=== PATIENT | male | born 1950 | race Caucasian/White ===

== ENCOUNTER 2022-03-13 13:47 | Outpatient (CLI) | payer MEDICARE, SELFPAY ==
[2022-03-13 14:04] LABS: Hemoglobin 14.1 g/dL (14.0-18.0); Mean Corpuscular HGB Conc 33.6 g/dl (32-36); Mean Corpuscular Volume 95.5 fl (80-100); Mean Platelet Volume 9.8 fl (7.4-10.4); Platelet Count Result 529 k/mm3 (150-375); Red Cell Distribution Width 17.6 % (11.5-14.5); White Blood Count 5.9 K/mm3 (4.5-10.0)
[2022-03-13 14:09] LABS: Sodium 141 mmol/L (137-145)
[2022-03-13 17:11] LABS: Anion Gap 14 mmol/L (8-16); Blood Urea Nitrogen 19 mg/dL (9-20); Calcium 9.4 mg/dL (8.4-10.2); Carbon Dioxide 20 mmol/L (22-30); Chloride 107 mmol/L (98-107); Estimated Glomerular Filt Rate > 60; Glucose 139 mg/dL (65-110); Potassium 3.9 mmol/L (3.4-5.0)
== END 2022-03-13 13:48 | disposition home or self-care (01) ==
LOC: ANHLAB 13:50
PROVIDERS: PCP Family Medicine; Visit Provider Internal Medicine Hematology & Oncology
DX: D47.3 Essential (hemorrhagic) thrombocythemia (principal)
CPT/HCPCS: 36415; 80048; 85027

== ENCOUNTER 2022-03-22 12:18 | Outpatient (CLI) | payer MEDICARE, SELFPAY ==
--- NOTE | 2022-03-22 12:31 | ECG_ITS ---
Measurements Intervals [place] Rate: 68 P: 29 NH: 153 QRS: -11 QRSD: 98 T: 9 QT: 387 QTc: 412 Interpretive Statements SINUS RHYTHM NORMAL ECG NO PREVIOUS ECG AVAILABLE FOR COMPARISON Electronically Signed On 03-22-2022 14:19:23 CDT by Nehemias Narayan M.D.
== END 2022-03-22 12:19 | disposition home or self-care (01) ==
PROVIDERS: PCP Family Medicine; Visit Provider Urology
DX: Z01.818 Encounter for other preprocedural examination (principal); I10 Essential (primary) hypertension; N43.3 Hydrocele, unspecified
CPT/HCPCS: 87086; 93005

== ENCOUNTER 2022-04-03 02:01 | Day surgery (SDC) | payer MEDICARE, SELFPAY ==
[2022-03-22 10:50] VITALS: BMI 31.4
--- NOTE | 2022-03-22 11:12 | PC.NURSE ---
Report to the Outpatient Waiting Room, entrance under the green pavilion located off [facility], at time _10:00AM on date __04/03/22 . OR Time: ___12:00PM . - You and your visitor will be asked a series of questions to screen for COVID 19 for your protection. - Only one visitor is allowed at this time. - The patient visitor is requested to leave or wait in car when not with patient. - A mask is required within the hospital. Patients may have clear liquids (water, carbonated beverages, clear teas, apple juice) until 3 hours prior to surgery with a maximum of 20 ounces. - No food from midnight until time of surgery - Infants may have breast milk until 4 hours before surgery, formula 6 hours prior to surgery. - Children will be allowed to drink immediately following surgery. If applicable, please bring a bottle or sippy cup to assist with drinking. Juice, water, soda, and popsicles are readily available. For infants on formula, please bring formula the day of surgery. Pacifiers are allowed. Take the following medications with a SIP of water the morning of surgery: ____METOPROLOL Medications to discontinue per physician ___PT & CHECKING WITH DR LONG REGARDING HOLDING OF ASPIRIN Date to take last dose Please no make-up, nail persian, hairspray, perfume, deodorant, or body powder the day of surgery. No jewelry (including any body piercings) or valuables the day of surgery, leave them at home. Please take a shower or bath the night before, or the morning of, surgery with an antibacterial soap. Wear comfortable, loose fitting clothing. Children are encouraged to wear pajamas. - Jewelry must be removed prior to entering the operating room. Rings and piercings that are not removed may be cut off. - The hospital will not accept responsibility for valuables. - Please leave all valuables, including medications, at home the day of surgery. If you are going home after surgery, a licensed [employer] company driver must drive you home. - NO public transportation without another adult. - We recommend that an adult stay with you for 24 hours following discharge. - We also recommend that you do not drive, make important decision, drink alcoholic beverages, or take any drugs that were not prescribed by your health care provider for at least 24 hours after your discharge time. For Pediatric surgeries, we recommend two adults accompany the child home (only one inside the building at this time). Follow any additional instructions given to you from your surgeon. If you or anyone in your household have experienced Covid symptoms in the past week, please notify your surgeon or the nurse liaison at the phone number below for possible testing. Telephone instructions given to ___PATIENT and asked if any additional questions and then verbalized understanding. Patient advised to call surgeon office or pre surgery nurse liaison [phone] if any additional questions.
[2022-04-03] VITALS (7 sets, daily range): BP systolic 133–166; BP diastolic 64–84; PULSE 49–65; RESP 14–18; TEMP 36.2–36.5; O2SAT 96–100; BMI 30.4
[2022-04-03 10:49] LABS: Glucose Point of Care 113 mg/dl (65-105)
[2022-04-03] MEDS: ACETAMINOPHEN 500 MG TABLET 1000 MG PO (11:00)
--- NOTE | 2022-04-03 11:29 | WPDANESEPPF ---
Anes - Initial Pre Proc Eval Procedure: Operation Date: 04/03/22 12:00 Proposed Procedures p Left Hydrocelectomy with Possible Orchiopexy - Eh Lyon MD Date/Time: 04/03/22 11:29 Surgeon: Eh Lyon MD Pre Op Diagnosis: left hydrocele Patient Data Age: 71 Gender: M Height: 1.7 m Weight: 88.2 kg Last Vital Signs Temp 36.5 C 04/03/22 11:15 Pulse 54 L 04/03/22 11:15 Resp 14 04/03/22 11:15 BP 166/82 H 04/03/22 11:15 Pulse Ox 100 04/03/22 11:15 O2 Del Method Room Air 04/03/22 11:15 Allergies Allergy/AdvReac Type Severity Reaction Status Date / Time lovastatin AdvReac Unknown MUSCLE Verified 04/03/22 11:35 Weakness Home Medications Medication Instructions Recorded Confirmed Type metoprolol tartrate 50 mg tablet 50 mg PO Q12H #180 tabs 10/03/21 03/22/22 Rx hydroxyurea 500 mg capsule 500 mg PO HS 02/21/22 03/22/22 History allopurinol 300 mg tablet 300 tablet PO QAM 03/22/22 03/22/22 History amlodipine 5 mg tablet 5 mg PO HS 03/22/22 03/22/22 History aspirin 81 mg tablet,delayed 81 mg PO DAILY 03/22/22 03/22/22 History release famotidine 20 mg tablet (Pepcid AC) 20 mg PO DAILY PRN Indigestion 03/22/22 03/22/22 History finasteride 5 mg tablet 5 mg PO HS 03/22/22 03/22/22 History lisinopril 20 mg tablet 20 mg PO QAM 03/22/22 03/22/22 History metformin 500 mg tablet 500 mg PO HS 03/22/22 03/22/22 History multivitamin 1 tablet PO DAILY 03/22/22 03/22/22 History sildenafil 100 mg tablet (Viagra) 100 mg PO DAILY PRN sexual activity 03/22/22 03/22/22 History tamsulosin 0.4 mg capsule 0.4 mg PO QAM 03/22/22 03/22/22 History Laboratory Tests 04/03/22 10:46 POC Capillary Glucose 113 mg/dl H mg/dl (65-105) Patient hx anesthesia problems: none Family hx anesthesia problems: none Results Review: All pre-operative results and documents have been reviewed as part of the pre-operative evaluation. [facility] Past Medical History Medical History (Updated 04/03/22 @ 11:30 by Fermin Simons DO) Essential (primary) hypertension Essential thrombocythemia Mixed hyperlipidemia Obesity (BMI 30.0-34.9) Type 2 diabetes mellitus with complication Surgical History Surgical History (Updated 12/12/21 @ 10:14 by Nehemias Long MD) History of hernia repair History of total right knee replacement (~12/29/15) Family History Family History Other Family history of hypercholesterolemia Social History Social History (Updated 12/12/21 @ 09:54 by ALEXEI Espinal) Smoking packs per day: 1 Smoking cigarettes per day: 20.0 Years smoked: 40 Smoking pack-years: 40.00 Smoking status: Former smoker Tobacco type: cigarettes Smoking end date: 04/12/11 Alcohol intake: current Drinks per week: 6 Alcohol use details: 6-12 per week Substance use: never Substance use type: does not use Living arrangements: with family Additional living arrangements comments: Gender identity (if verbalized by the patient): Male Spiritual care concerns: No Anes - Eval Final PreProcedure Day of Procedure 04/03/22 11:29 Patient weight: obese Heart: regular rate and rhythm Lungs: clear to auscultation Airway: Mallampati scale class II Neurological: alert and oriented Last oral intake: >/= 8 hours ASA classification: III Emergent: no Anesthetic plan: proceed Anesthesia type and monitoring: general LMA and standard monitoring Results Review: All pre-operative results and documents have been reviewed as part of the pre-operative evaluation. Informed Consent: The patient's anesthetic plan and its attendant risks and benefits were discussed with the patient/family/POA. Questions were solicited and answers provided to the satisfaction of the patient/family/POA.
[2022-04-03] MEDS: LACTATED RINGERS 1,000 ML 30 ML IV CONT ×2 (11:36→13:21)
--- NOTE | 2022-04-03 12:00 | WPDHPUPDATE1 ---
History and Physical Update Update Date/Time: 04/03/22 12:00 History and Physical has been reviewed, including an updated exam of the patient. There are NO changes in the patient's condition. Risks, benefits, and alternatives have been discussed and questions answered. Patient agrees to proceed with procedure.
[2022-04-03] MEDS: ceFAZolin 2 GM/D5W 50 ML 2 GM/50 ML BAG IVPB (12:14)
[2022-04-03] MEDS: NEOMYCIN/POLYMYXIN/BACITRACIN OINTMENT 15 GM TUBE 1 APPLIC TOPICAL (13:10)
--- NOTE | 2022-04-03 13:15 | W.PM.PROC2 ---
Procedure Note - Detailed Date of Procedure 04/03/22 Pre-op Diagnosis left hydrocele Post-op Diagnosis Same Procedure Performed left hydrocelectomy, left orchiopexy Surgeon Eh Lyon MD Description of Procedure Informed consent was obtained. Patient taken to room. He was given preoperative IV antibiotics. Was induced with anesthesia. 0.5% Marcaine was injected in the midline scrotal raphe. We made a 5cm incision. We dissected down the left hemiscrotum right large hydrocele was identified. The hydrocele sac was from surrounding structures. The sac was opened and return approximately 300mL straw colored fluid. We inspected the testicle and spermatic cord which were normal in appearance. We excised the edges of the hydrocele sac taking great care not to injure the spermatic cord. Edges were oversewn with 2 0 Vicryl suture. We irrigated copiously, there was good hemostasis. At this point the testicle did appear rather mobile, we therefore elected to perform an orchiopexy using 3-0 Ethibond suture laterally, medially, inferiorly to the dartos layer and through the tunica albuginea of the testicle. The testicle sat nicely in the inferior aspect of the hemiscrotum. We then again irrigated. We closed the dartos layer with 2-0 Vicryl suture. Deep dermal layer with 3-0 Vicryl suture and skin with a 3-0 chromic horizontal mattress closure. Dressing was placed scrotal supporter applied. Patient was awakened to recovery room in stable condition Estimated Blood Loss 10 Complications No immediate complications Condition Stable Disposition PACU
[2022-04-03 13:27] LABS: Glucose Point of Care 107 mg/dl (65-105)
[2022-04-03] MEDS: oxyCODONE HCL (*CRX) 5 MG TAB IR PO (14:48)
== END 2022-04-03 15:28 | disposition home or self-care (01) ==
PROVIDERS: PCP Family Medicine; Visit Provider Urology
PROC: (CPT 55040; principal; 2022-04-03 12:00)
DX: N43.3 Hydrocele, unspecified (principal); I10 Essential (primary) hypertension; E78.2 Mixed hyperlipidemia; E11.9 Type 2 diabetes mellitus without complications; Z79.82 Long term (current) use of aspirin; Z79.84 Long term (current) use of oral hypoglycemic drugs; E66.9 Obesity, unspecified; Z68.30 Body mass index [BMI] 30.0-30.9, adult; Z87.891 Personal history of nicotine dependence
CPT/HCPCS: 55040; 54640; 82948; 88302; A9270; J0690; J1100; J2250; J2405; J2704; J2710; J3010; J7120

== ENCOUNTER 2022-04-11 12:35 | Outpatient (CLI) | payer MEDICARE, SELFPAY ==
[2022-04-11 12:55] LABS: Basophils Absolute Auto 0.1 K/mm3 (0.0-0.1); Basophils Percent Auto 1.1 % (0.2-1.2); Eosinophils Absolute Auto 0.2 K/mm3 (0-0.3); Eosinophils Percent Auto 2.7 % (0-4.4); Hematocrit 40.3 % (42.0-52.0); Hemoglobin 13.5 g/dL (14.0-18.0); Immature Granulocyte Absolute 0.05 K/mm3 (0.00-0.031); Immature Granulocyte Percent A 0.6 % (0-0.5); Lymphocytes Absolute Auto 2.11 K/mm3 (0.9-3.2); Lymphocytes Percent Auto 24.8 % (18.3-44.2); Mean Corpuscular HGB Conc 33.5 g/dl (32-36); Mean Corpuscular Hemoglobin 33.7 pg (26-34); Mean Corpuscular Volume 100.5 fl (80-100); Mean Platelet Volume 10.1 fl (7.4-10.4); Monocytes Absolute Auto 0.8 K/mm3 (0.1-0.6); Monocytes Percent Auto 9.6 % (2.6-8.5); Neutrophils Absolute Auto 5.2 K/mm3 (1.3-6.7); Neutrophils Percent Auto 61.2 % (45.5-73.1); Platelet Count Result 435 k/mm3 (150-375); Red Blood Count 4.01 M/mm3 (4.6-6.20); Red Cell Distribution Width 19.1 % (11.5-14.5); White Blood Count 8.5 K/mm3 (4.5-10.0)
[2022-04-11 12:59] LABS: Blood Urea Nitrogen 21 mg/dL (8-26); Carbon Dioxide 27 mmol/L (22-30); Chloride 106 mmol/L (98-109); Estimated Glomerular Filt Rate 38; Glucose 100 mg/dL (70-105); Ionized Calcium (POC) 1.22 mmol/L (1.11-1.31); Potassium 4.3 mmol/L (3.5-4.9); Sodium 140 mmol/L (138-146)
== END 2022-04-11 12:36 | disposition home or self-care (01) ==
LOC: ANHLAB 12:37
PROVIDERS: PCP Family Medicine; Visit Provider Internal Medicine Hematology & Oncology
DX: D47.3 Essential (hemorrhagic) thrombocythemia (principal)
CPT/HCPCS: 36415; 80047; 85025

== ENCOUNTER 2022-05-21 13:54 | Outpatient (CLI) | payer MEDICARE, SELFPAY ==
[2022-05-21 14:11] LABS: Basophils Absolute Auto 0.1 K/mm3 (0.0-0.1); Eosinophils Absolute Auto 0.2 K/mm3 (0-0.3); Eosinophils Percent Auto 3.1 % (0-4.4); Hematocrit 39.4 % (42.0-52.0); Hemoglobin 13.1 g/dL (14.0-18.0); Immature Granulocyte Absolute 0.03 K/mm3 (0.00-0.031); Immature Granulocyte Percent A 0.4 % (0-0.5); Lymphocytes Absolute Auto 2.02 K/mm3 (0.9-3.2); Lymphocytes Percent Auto 28.2 % (18.3-44.2); Mean Corpuscular HGB Conc 33.2 g/dl (32-36); Mean Corpuscular Hemoglobin 34.6 pg (26-34); Monocytes Absolute Auto 0.7 K/mm3 (0.1-0.6); Monocytes Percent Auto 9.5 % (2.6-8.5); Neutrophils Absolute Auto 4.1 K/mm3 (1.3-6.7); Neutrophils Percent Auto 57.8 % (45.5-73.1); Platelet Count Result 425 k/mm3 (150-375); Red Blood Count 3.79 M/mm3 (4.6-6.20); Red Cell Distribution Width 17.7 % (11.5-14.5); White Blood Count 7.2 K/mm3 (4.5-10.0)
== END 2022-05-21 13:55 | disposition home or self-care (01) ==
PROVIDERS: PCP Family Medicine; Visit Provider Internal Medicine Hematology & Oncology
DX: D47.3 Essential (hemorrhagic) thrombocythemia (principal)
CPT/HCPCS: 36415; 85025

== ENCOUNTER 2022-08-19 14:12 | Outpatient (CLI) | payer MEDICARE, SELFPAY ==
[2022-08-19 14:22] LABS: Hematocrit 40.1 % (42.0-52.0); Hemoglobin 13.6 g/dL (14.0-18.0); Mean Corpuscular HGB Conc 33.9 g/dl (32-36); Mean Corpuscular Hemoglobin 36.1 pg (26-34); Mean Corpuscular Volume 106.4 fl (80-100); Mean Platelet Volume 10.1 fl (7.4-10.4); Platelet Count Result 345 k/mm3 (150-375); Red Blood Count 3.77 M/mm3 (4.6-6.20); Red Cell Distribution Width 14.2 % (11.5-14.5); White Blood Count 7.5 K/mm3 (4.5-10.0)
[2022-08-19 14:29] LABS: Blood Urea Nitrogen 19 mg/dL (8-26); Carbon Dioxide 26 mmol/L (22-30); Chloride 104 mmol/L (98-109); Estimated Glomerular Filt Rate 35; Glucose 154 mg/dL (70-105); Ionized Calcium (POC) 1.23 mmol/L (1.11-1.31); Potassium 4.1 mmol/L (3.5-4.9); Sodium 140 mmol/L (138-146)
== END 2022-08-19 14:13 | disposition home or self-care (01) ==
LOC: ANHLAB 14:13
PROVIDERS: PCP Family Medicine; Visit Provider Internal Medicine Hematology & Oncology
DX: D47.3 Essential (hemorrhagic) thrombocythemia (principal)
CPT/HCPCS: 36415; 80047; 85027

== ENCOUNTER 2022-11-18 13:57 | Outpatient (CLI) | payer MEDICARE, SELFPAY ==
[2022-11-18 14:07] LABS: Basophils Absolute Auto 0.1 K/mm3 (0.0-0.1); Eosinophils Absolute Auto 0.4 K/mm3 (0-0.3); Eosinophils Percent Auto 4.8 % (0-4.4); Hematocrit 39.1 % (42.0-52.0); Hemoglobin 13.3 g/dL (14.0-18.0); Immature Granulocyte Absolute 0.04 K/mm3 (0.00-0.031); Immature Granulocyte Percent A 0.5 % (0-0.5); Lymphocytes Absolute Auto 2.94 K/mm3 (0.9-3.2); Lymphocytes Percent Auto 36.5 % (18.3-44.2); Mean Corpuscular Hemoglobin 36.6 pg (26-34); Mean Corpuscular Volume 107.7 fl (80-100); Mean Platelet Volume 9.8 fl (7.4-10.4); Monocytes Absolute Auto 0.9 K/mm3 (0.1-0.6); Monocytes Percent Auto 11.3 % (2.6-8.5); Neutrophils Absolute Auto 3.7 K/mm3 (1.3-6.7); Neutrophils Percent Auto 45.9 % (45.5-73.1); Platelet Count Result 355 k/mm3 (150-375); Red Blood Count 3.63 M/mm3 (4.6-6.20); Red Cell Distribution Width 14.6 % (11.5-14.5); White Blood Count 8.1 K/mm3 (4.5-10.0)
[2022-11-18 14:13] LABS: Blood Urea Nitrogen 21 mg/dL (8-26); Carbon Dioxide 31 mmol/L (22-30); Chloride 104 mmol/L (98-109); Estimated Glomerular Filt Rate 31; Glucose 91 mg/dL (70-105); Ionized Calcium (POC) 1.25 mmol/L (1.11-1.31); Potassium 3.8 mmol/L (3.5-4.9); Sodium 142 mmol/L (138-146)
== END 2022-11-18 13:58 | disposition home or self-care (01) ==
LOC: ANHLAB 13:58
PROVIDERS: PCP Family Medicine; Visit Provider Internal Medicine Hematology & Oncology
DX: D47.3 Essential (hemorrhagic) thrombocythemia (principal)
CPT/HCPCS: 36415; 80047; 85025

== ENCOUNTER 2023-02-11 11:06 | Outpatient (CLI) | payer MEDICARE, SELFPAY ==
[2023-02-11 11:19] LABS: Basophils Absolute Auto 0.1 K/mm3 (0.0-0.1); Eosinophils Absolute Auto 0.3 K/mm3 (0-0.3); Eosinophils Percent Auto 3.8 % (0-4.4); Hematocrit 39.1 % (42.0-52.0); Hemoglobin 13.5 g/dL (14.0-18.0); Immature Granulocyte Absolute 0.04 K/mm3 (0.00-0.031); Immature Granulocyte Percent A 0.6 % (0-0.5); Lymphocytes Absolute Auto 2.05 K/mm3 (0.9-3.2); Lymphocytes Percent Auto 29.2 % (18.3-44.2); Mean Corpuscular HGB Conc 34.5 g/dl (32-36); Mean Corpuscular Volume 104.3 fl (80-100); Monocytes Absolute Auto 0.5 K/mm3 (0.1-0.6); Monocytes Percent Auto 7.7 % (2.6-8.5); Neutrophils Absolute Auto 4.1 K/mm3 (1.3-6.7); Neutrophils Percent Auto 57.7 % (45.5-73.1); Platelet Count Result 374 k/mm3 (150-375); Red Blood Count 3.75 M/mm3 (4.6-6.20); Red Cell Distribution Width 13.9 % (11.5-14.5)
[2023-02-11 11:23] LABS: Blood Urea Nitrogen 18 mg/dL (8-26); Carbon Dioxide 24 mmol/L (22-30); Chloride 103 mmol/L (98-109); Estimated Glomerular Filt Rate 26; Glucose 115 mg/dL (70-105); Potassium 4.1 mmol/L (3.5-4.9); Sodium 139 mmol/L (138-146)
== END 2023-02-11 11:07 | disposition home or self-care (01) ==
LOC: ANHLAB 11:08
PROVIDERS: PCP Family Medicine; Visit Provider Internal Medicine Hematology & Oncology
DX: D47.3 Essential (hemorrhagic) thrombocythemia (principal)
CPT/HCPCS: 36415; 80047; 85025

== ENCOUNTER 2023-06-25 10:28 | Outpatient (CLI) | payer MEDICARE, SELFPAY ==
[2023-06-25 10:39] LABS: Basophils Absolute Auto 0.1 K/mm3 (0.0-0.1); Basophils Percent Auto 0.7 % (0.2-1.2); Eosinophils Absolute Auto 0.2 K/mm3 (0-0.3); Eosinophils Percent Auto 2.1 % (0-4.4); Hematocrit 40.3 % (42.0-52.0); Hemoglobin 13.4 g/dL (14.0-18.0); Immature Granulocyte Absolute 0.05 K/mm3 (0.00-0.031); Immature Granulocyte Percent A 0.7 % (0-0.5); Lymphocytes Absolute Auto 1.55 K/mm3 (0.9-3.2); Lymphocytes Percent Auto 20.2 % (18.3-44.2); Mean Corpuscular HGB Conc 33.3 g/dl (32-36); Mean Corpuscular Hemoglobin 35.1 pg (26-34); Mean Corpuscular Volume 105.5 fl (80-100); Mean Platelet Volume 9.9 fl (7.4-10.4); Monocytes Absolute Auto 0.6 K/mm3 (0.1-0.6); Monocytes Percent Auto 8.1 % (2.6-8.5); Neutrophils Absolute Auto 5.3 K/mm3 (1.3-6.7); Neutrophils Percent Auto 68.2 % (45.5-73.1); Platelet Count Result 434 k/mm3 (150-375); Red Blood Count 3.82 M/mm3 (4.6-6.20); Red Cell Distribution Width 14.4 % (11.5-14.5); White Blood Count 7.7 K/mm3 (4.5-10.0)
[2023-06-25 10:43] LABS: Blood Urea Nitrogen 15 mg/dL (8-26); Carbon Dioxide 27 mmol/L (22-30); Chloride 101 mmol/L (98-109); Estimated Glomerular Filt Rate 19; Glucose 154 mg/dL (70-105); Ionized Calcium (POC) 1.23 mmol/L (1.11-1.31); Potassium 4.3 mmol/L (3.5-4.9); Sodium 139 mmol/L (138-146)
== END 2023-06-25 10:29 | disposition home or self-care (01) ==
LOC: ANHLAB 10:29
PROVIDERS: PCP Family Medicine; Visit Provider Internal Medicine Hematology & Oncology
DX: D47.3 Essential (hemorrhagic) thrombocythemia (principal)
CPT/HCPCS: 36415; 80047; 85025

== ENCOUNTER 2023-09-26 11:29 | Outpatient (CLI) | payer MEDICARE, SELFPAY ==
[2023-09-26 11:44] LABS: Basophils Absolute Auto 0.1 K/mm3 (0.0-0.1); Basophils Percent Auto 1.1 % (0.2-1.2); Eosinophils Absolute Auto 0.3 K/mm3 (0-0.3); Eosinophils Percent Auto 3.6 % (0-4.4); Hematocrit 40.6 % (42.0-52.0); Hemoglobin 13.5 g/dL (14.0-18.0); Immature Granulocyte Absolute 0.02 K/mm3 (0.00-0.031); Immature Granulocyte Percent A 0.3 % (0-0.5); Lymphocytes Absolute Auto 2.01 K/mm3 (0.9-3.2); Lymphocytes Percent Auto 28.7 % (18.3-44.2); Mean Corpuscular HGB Conc 33.3 g/dl (32-36); Mean Corpuscular Hemoglobin 35.3 pg (26-34); Mean Corpuscular Volume 106.3 fl (80-100); Mean Platelet Volume 9.8 fl (7.4-10.4); Monocytes Absolute Auto 0.6 K/mm3 (0.1-0.6); Monocytes Percent Auto 8.3 % (2.6-8.5); Neutrophils Absolute Auto 4.1 K/mm3 (1.3-6.7); Platelet Count Result 387 k/mm3 (150-375); Red Blood Count 3.82 M/mm3 (4.6-6.20); Red Cell Distribution Width 14.6 % (11.5-14.5)
[2023-09-26 11:47] LABS: Blood Urea Nitrogen 21 mg/dL (8-26); Carbon Dioxide 29 mmol/L (22-30); Chloride 102 mmol/L (98-109); Estimated Glomerular Filt Rate 22; Glucose 124 mg/dL (70-105); Potassium 4.4 mmol/L (3.5-4.9); Sodium 141 mmol/L (138-146)
== END 2023-09-26 11:30 | disposition home or self-care (01) ==
LOC: ANHLAB 11:32
PROVIDERS: PCP Family Medicine; Visit Provider Internal Medicine Hematology & Oncology
DX: D47.3 Essential (hemorrhagic) thrombocythemia (principal)
CPT/HCPCS: 36415; 80047; 85025

== ENCOUNTER → 2023-11-20 10:12 | Outpatient (CLI) | payer MEDICARE, SELFPAY ==
--- NOTE | ~2023-11-20 | US_ITS ---
Renal-Bladder ultrasound Clinical History: Abnormal renal function Technique: Real-time sonographic imaging of the kidneys and urinary bladder was performed. Findings: The right kidney measures 11.3 cm in length and the left kidney measures 11.6 cm. There is no hydronephrosis or renal calculus identified. Renal cortical echogenicity is within normal limits. No solid renal mass lesion is identified. Bilateral renal cysts are present. The urinary bladder is moderately distended at the time of this exam. No intraluminal echoes are iden tified. No abnormal wall thickening is seen. Impression: No significant abnormality. Reviewed, dictated and finalized at location . K CHECKER Impression: No significant abnormality.
== END ==
PROVIDERS: PCP Internal Medicine Nephrology; Visit Provider Internal Medicine Nephrology
DX: R94.4 Abnormal results of kidney function studies (principal)
CPT/HCPCS: 76775

== ENCOUNTER 2023-11-22 08:54 | Outpatient (CLI) | payer MEDICARE, SELFPAY ==
[2023-11-22 09:45] LABS: Albumin Level 4.3 g/dL (3.5-5.1); Anion Gap 9 mmol/L (8-16); Blood Urea Nitrogen 21 mg/dL (9-20); Calcium 9.5 mg/dL (8.4-10.2); Carbon Dioxide 26 mmol/L (22-30); Chloride 104 mmol/L (98-107); Estimated Glomerular Filt Rate > 60; Glucose 138 mg/dL (65-110); Phosphorus 3.6 mg/dL (2.5-4.5); Potassium 4.2 mmol/L (3.4-5.0); Sodium 139 mmol/L (137-145)
== END 2023-11-22 08:55 | disposition home or self-care (01) ==
PROVIDERS: PCP Internal Medicine Nephrology; Visit Provider Internal Medicine Nephrology
DX: R94.4 Abnormal results of kidney function studies (principal)
CPT/HCPCS: 36415; 80069

== ENCOUNTER 2023-12-26 11:38 | Outpatient (CLI) | payer MEDICARE, SELFPAY ==
[2023-12-26 11:52] LABS: Basophils Absolute Auto 0.1 K/mm3 (0.0-0.1); Basophils Percent Auto 1.3 % (0.2-1.2); Eosinophils Absolute Auto 0.2 K/mm3 (0-0.3); Eosinophils Percent Auto 3.5 % (0-4.4); Hematocrit 40.2 % (42.0-52.0); Hemoglobin 13.7 g/dL (14.0-18.0); Immature Granulocyte Absolute 0.04 K/mm3 (0.00-0.031); Immature Granulocyte Percent A 0.6 % (0-0.5); Lymphocytes Absolute Auto 1.53 K/mm3 (0.9-3.2); Lymphocytes Percent Auto 22.6 % (18.3-44.2); Mean Corpuscular HGB Conc 34.1 g/dl (32-36); Mean Corpuscular Hemoglobin 35.1 pg (26-34); Mean Corpuscular Volume 103.1 fl (80-100); Monocytes Absolute Auto 0.6 K/mm3 (0.1-0.6); Monocytes Percent Auto 8.6 % (2.6-8.5); Neutrophils Absolute Auto 4.3 K/mm3 (1.3-6.7); Neutrophils Percent Auto 63.4 % (45.5-73.1); Platelet Count Result 363 k/mm3 (150-375); Red Cell Distribution Width 14.4 % (11.5-14.5); White Blood Count 6.8 K/mm3 (4.5-10.0)
[2023-12-26 11:56] LABS: Blood Urea Nitrogen 19 mg/dL (8-26); Carbon Dioxide 24 mmol/L (22-30); Chloride 102 mmol/L (98-109); Estimated Glomerular Filt Rate 22; Glucose 191 mg/dL (70-105); Ionized Calcium (POC) 1.16 mmol/L (1.11-1.31); Potassium 4.2 mmol/L (3.5-4.9); Sodium 139 mmol/L (138-146)
== END 2023-12-26 11:39 | disposition home or self-care (01) ==
LOC: ANHLAB 11:40
PROVIDERS: PCP Internal Medicine Nephrology; Visit Provider Internal Medicine Hematology & Oncology
DX: D47.3 Essential (hemorrhagic) thrombocythemia (principal)
CPT/HCPCS: 36415; 80047; 85025

== ENCOUNTER 2024-01-30 09:22 | Outpatient (CLI) | payer MEDICARE, SELFPAY ==
--- NOTE | 2024-01-30 09:43 | ECG_ITS ---
SEE SCANNED COPY FOR CONFIRMED REPORT MTDD
== END 2024-01-30 09:23 | disposition home or self-care (01) ==
PROVIDERS: PCP Family Medicine; Visit Provider Anesthesiology
DX: Z01.818 Encounter for other preprocedural examination (principal); I10 Essential (primary) hypertension
CPT/HCPCS: 93005

== ENCOUNTER 2024-02-12 08:19 | Day surgery (SDC) | payer MEDICARE, SELFPAY ==
[2024-01-19 11:20] VITALS: BMI 31.2
--- NOTE | 2024-02-12 07:05 | P.OP_ITS ---
Procedure Note - Detailed Date of Procedure 02/12/24 Pre-op Diagnosis Right Middle Trigger Finger Post-op Diagnosis Same Procedure Performed right middle finger a1 josh release Surgeon Dorys Do MD [employer] Laboratory Worker Gavin Nunes PA-C Anesthesia MAC Description of Procedure INFORMED CONSENT: The patient was seen and examined and marked in the pre-op area.? The patient signed the consent form. PROCEDURE IN DETAIL:The patient taken back to OR on the stretcher in supine position. Time out performed with anesthesia, surgeon and staff agreeing on patient's name site and surgery to be performed SCDs were placed on the lower extremities and inflated. A tourniquet was placed on {right} upper extremity and antibiotics given IV After anesthesia administered sedation I injected {3}cc 1%lido with epi and 0.5% marcaine plain at the operative site The?{right upper extremity}?was prepped and draped in sterile fashion the??{right upper extremity} was? exsanguinated with Esmarch bandage and tourniquet inflated to 250mmHg I made a longitudinal incision over right middle finger A1 josh through skin and dermis with 15 blade scalpel. Littler scissors were used to spread down to the a1 josh. The josh was initially incised with 15 blade salpel then littler scissors were used to spread above it and below it proximally and distally and completed the transection entirely. Ragnell retractors were used to withdraw the fds and fdp tendons for inspection. They were free of masses and synovitis and gliding smoothly in the sheath. I irrigated with normal saline and closied with 4-0 chromic. A dressing of xeroform, 4x4, danna, and jorge bandage was applied after the tourniquet was let down noting the hand was warm and well perfused. The patient was then awaken from anesthesia and transferred to the recovery room in stable condition.? Complications - none EBL- 0cc Disposition - home in stable conditions Gavin Nunes PA-C was essential for positioning, retraction, closure and dressing placement [facility] Billing Surgery - Charge Forward: Surgery Billing ([id number] same for gavin adding modifier as)
--- NOTE | 2024-02-12 07:05 | PM.HPGS ---
History of Present Illness History of Present Illness Chief complaint: Right Middle Trigger Finger Narrative: Patient seen and examined in pre-operative holding area. No interval change in medical history or symptoms. Patient recalls previous discussion of benefits and alternatives to procedure. Continues to desire to proceed with right middle finger a1 josh release . Reviewed procedure, post-op expectations and risks including but not limited to bleeding, infection, injury to tendon/nerve/vessel, decreased hand function, stiffness, RSD, no change or worsening of symptoms. I discussed the possible use of assistants and their participation in the case. Patient stated understanding and signed the consent form wishing to proceed. Review of Systems Review of Systems: All systems reviewed & are unremarkable except as noted in HPI and below PMFSH Past Medical History Medical History Essential (primary) hypertension Essential thrombocythemia Mixed hyperlipidemia Obesity (BMI 30.0-34.9) Type 2 diabetes mellitus with complication Surgical History Surgical History History of hernia repair History of total right knee replacement (~12/29/15) S/P orchiopexy Status post repair of hydrocele Family History Family History Other Family history of hypercholesterolemia Social History Social History Smoking packs per day: 1 Smoking cigarettes per day: 20.0 Years smoked: 40 Smoking pack-years: 40.00 Smoking status: Former smoker Tobacco type: cigarettes Smoking end date: 04/12/11 Alcohol intake: current Drinks per week: 6 Alcohol use details: 6-12 per week Substance use: never Substance use type: does not use Do You Feel Safe in your Home?: Yes Lack of Transportation: No Lack of Food: Never True Current Housing: I Have Housing Concerned About Future Housing: No Difficulty Paying Gas/Electric Bills: No Difficulty Paying for Meds: No Currently Unemployed: No Education: High School Diploma/GED Difficulty w/ Childcare or Family Care: No Living arrangements: with family Additional living arrangements comments: Occupation/Education: retired Gender identity (if verbalized by the patient): Male Sexual Orientation (if Verbalized by the Patient): Straight or Heterosexual Spiritual care concerns: No Meds Home Medications and Allergies Home Medications Medication Instructions Recorded Confirmed Type aspirin 81 mg tablet,delayed 81 mg PO DAILY 03/22/22 02/12/24 History release sildenafil 100 mg tablet (Viagra) 100 mg PO DAILY PRN sexual 07/25/23 02/12/24 Rx activity #10 tabs lisinopril 20 mg tablet See Rx Instructions .Route 10/24/23 02/12/24 Rx .COMPLEX #90 tabs metoprolol tartrate 50 mg tablet 50 mg PO Q12H #180 tabs 10/24/23 02/12/24 Rx hydroxyurea 500 mg capsule 500 mg PO BID 11/06/23 02/12/24 History sertraline 25 mg tablet 50 mg PO DAILY #180 tabs 12/05/23 02/12/24 Rx allopurinol 300 mg tablet 300 mg PO DAILY 01/07/24 02/12/24 History fluoride (sodium) 1.1 % dental dental 01/07/24 History paste (PreviDent 5000 Dry Mouth) amlodipine 5 mg tablet 5 mg PO HS #90 tabs 01/22/24 02/12/24 Rx finasteride 5 mg tablet 5 mg PO HS #90 tabs 01/22/24 02/12/24 Rx hydrochlorothiazide 12.5 mg tablet 12.5 mg PO DAILY #90 tabs 01/22/24 02/12/24 Rx metformin 500 mg tablet 500 mg PO HS #90 tabs 01/22/24 02/12/24 Rx tamsulosin 0.4 mg capsule See Rx Instructions .Route 01/22/24 02/12/24 Rx .COMPLEX #90 caps alprazolam 0.25 mg tablet 0.25 mg PO TID PRN anxiety #270 02/09/24 02/12/24 Rx tabs tramadol 50 mg tablet 50 mg PO Q6H PRN pain #8 tabs 02/12/24 Rx Allergies Allergy/AdvReac Type Severity Reaction Status Date / Time lovastatin AdvReac Unknown MUSCLE Veri
[2024-02-12 08:46] VITALS: BP 150/74; PULSE 55; RESP 18; TEMP 36.6; O2SAT 98; BMI 30.9
--- NOTE | 2024-02-12 08:51 | WPDANESEPPF ---
Anes - Initial Pre Proc Eval Procedure: Operation Date: 02/12/24 09:45 Proposed Procedures p Right Middle Trigger Finger Release - Dorys Do MD Date/Time: 02/12/24 08:51 Surgeon: Dorys Do MD Pre Op Diagnosis: Right Middle Trigger Finger Patient Data Age: 73 Gender: M Height: 1.7 m Weight: 89.6 kg Last Vital Signs Temp 36.6 C 02/12/24 08:46 Pulse 55 L 02/12/24 08:46 Resp 18 02/12/24 08:46 BP 150/74 H 02/12/24 08:46 Pulse Ox 98 02/12/24 08:46 O2 Del Method Room Air 02/12/24 08:46 Allergies Allergy/AdvReac Type Severity Reaction Status Date / Time lovastatin AdvReac Unknown MUSCLE Verified 02/12/24 08:38 Weakness Home Medications Medication Instructions Recorded Confirmed Type aspirin 81 mg tablet,delayed 81 mg PO DAILY 03/22/22 01/26/24 History release sildenafil 100 mg tablet (Viagra) 100 mg PO DAILY PRN sexual 07/25/23 01/26/24 Rx activity #10 tabs lisinopril 20 mg tablet See Rx Instructions .Route 10/24/23 01/26/24 Rx .COMPLEX #90 tabs metoprolol tartrate 50 mg tablet 50 mg PO Q12H #180 tabs 10/24/23 01/26/24 Rx hydroxyurea 500 mg capsule 500 mg PO BID 11/06/23 01/26/24 History sertraline 25 mg tablet 50 mg PO DAILY #180 tabs 12/05/23 01/26/24 Rx allopurinol 300 mg tablet 300 mg PO DAILY 01/07/24 01/26/24 History fluoride (sodium) 1.1 % dental dental 01/07/24 History paste (PreviDent 5000 Dry Mouth) amlodipine 5 mg tablet 5 mg PO HS #90 tabs 01/22/24 01/26/24 Rx finasteride 5 mg tablet 5 mg PO HS #90 tabs 01/22/24 01/26/24 Rx hydrochlorothiazide 12.5 mg tablet 12.5 mg PO DAILY #90 tabs 01/22/24 01/26/24 Rx metformin 500 mg tablet 500 mg PO HS #90 tabs 01/22/24 01/26/24 Rx tamsulosin 0.4 mg capsule See Rx Instructions .Route 01/22/24 01/26/24 Rx .COMPLEX #90 caps alprazolam 0.25 mg tablet 0.25 mg PO TID PRN anxiety #270 02/09/24 Rx tabs tramadol 50 mg tablet 50 mg PO Q6H PRN pain #8 tabs 02/12/24 Rx Patient hx anesthesia problems: none Family hx anesthesia problems: none Results Review: All pre-operative results and documents have been reviewed as part of the pre-operative evaluation. [facility] Past Medical History Medical History Essential (primary) hypertension Essential thrombocythemia Mixed hyperlipidemia Obesity (BMI 30.0-34.9) Type 2 diabetes mellitus with complication Surgical History Surgical History History of hernia repair History of total right knee replacement (~12/29/15) S/P orchiopexy Status post repair of hydrocele Family History Family History Other Family history of hypercholesterolemia Social History Social History Smoking packs per day: 1 Smoking cigarettes per day: 20.0 Years smoked: 40 Smoking pack-years: 40.00 Smoking status: Former smoker Tobacco type: cigarettes Smoking end date: 04/12/11 Alcohol intake: current Drinks per week: 6 Alcohol use details: 6-12 per week Substance use: never Substance use type: does not use Do You Feel Safe in your Home?: Yes Lack of Transportation: No Lack of Food: Never True Current Housing: I Have Housing Concerned About Future Housing: No Difficulty Paying Gas/Electric Bills: No Difficulty Paying for Meds: No Currently Unemployed: No Education: High School Diploma/GED Difficulty w/ Childcare or Family Care: No Living arrangements: with family Additional living arrangements comments: Occupation/Education: retired Gender identity (if verbalized by the patient): Male Sexual Orientation (if Verbalized by the Patient): Straight or Heterosexual Spiritual care concerns: No Anes - Eval Final PreProcedure Day of Procedure 02/12/24 08:51 Patient weight: obese Heart: regular rat
[2024-02-12] MEDS: LACTATED RINGERS 1,000 ML 30 ML IV CONT (09:08)
[2024-02-12 09:10] LABS: Glucose Point of Care 144 mg/dl (65-105)
[2024-02-12] MEDS: ceFAZolin SODIUM 2 GM/20 ML SW SYRINGE IV PUSH (09:25)
[2024-02-12] MEDS: LIDOCAINE HCL 1% LOCAL INJ 20 ML VIAL INFILTRATE (09:30)
[2024-02-12] MEDS: BUPivacaine HCL 0.5% 10 ML AMP INFILTRATE (09:30)
[2024-02-12 09:45] VITALS: BP 103/60; PULSE 53; RESP 12; O2SAT 91
[2024-02-12 10:00] VITALS: BP 116/70; PULSE 50; RESP 18; O2SAT 95
--- NOTE | 2024-02-12 10:19 | WPDANESPN ---
Anes - Prog Note Post-Op Date/Time: 02/12/24 10:19 Cardiovascular status: normal Respiratory status: normal Airway patency: baseline Mental status: baseline Post-Op hydration status: normal Vital Signs: Last Vital Signs Temp 36.6 C 02/12/24 08:46 Pulse 55 L 02/12/24 08:46 Resp 18 02/12/24 08:46 BP 150/74 H 02/12/24 08:46 Pulse Ox 98 02/12/24 08:46 O2 Del Method Room Air 02/12/24 08:46 Pain Score (VAS): 0/10 02/12/24 09:06 POC Capillary Glucose 144 H Patient Feedback: Patient satisfied with anesthetic care.
[2024-02-12 10:30] VITALS: BP 118/68; PULSE 51; RESP 18; O2SAT 95
== END 2024-02-12 10:49 | disposition home or self-care (01) ==
PROVIDERS: PCP Family Medicine; Visit Provider Plastic Surgery
PROC: (CPT 26055; principal; 2024-02-12 09:45)
DX: M65.331 Trigger finger, right middle finger (principal)
CPT/HCPCS: 26055

== ENCOUNTER 2024-04-09 10:13 | Outpatient (CLI) | payer MEDICARE, SELFPAY ==
[2024-04-09 10:33] LABS: Basophils Absolute Auto 0.1 K/mm3 (0.0-0.1); Basophils Percent Auto 0.9 % (0.2-1.2); Eosinophils Absolute Auto 0.2 K/mm3 (0-0.3); Eosinophils Percent Auto 3.2 % (0-4.4); Hematocrit 40.2 % (42.0-52.0); Hemoglobin 13.6 g/dL (14.0-18.0); Immature Granulocyte Absolute 0.04 K/mm3 (0.00-0.031); Immature Granulocyte Percent A 0.5 % (0-0.5); Lymphocytes Absolute Auto 1.91 K/mm3 (0.9-3.2); Lymphocytes Percent Auto 25.7 % (18.3-44.2); Mean Corpuscular HGB Conc 33.8 g/dl (32-36); Mean Corpuscular Hemoglobin 35.1 pg (26-34); Mean Corpuscular Volume 103.9 fl (80-100); Mean Platelet Volume 10.1 fl (7.4-10.4); Monocytes Absolute Auto 0.6 K/mm3 (0.1-0.6); Monocytes Percent Auto 8.1 % (2.6-8.5); Neutrophils Absolute Auto 4.6 K/mm3 (1.3-6.7); Neutrophils Percent Auto 61.6 % (45.5-73.1); Platelet Count Result 411 k/mm3 (150-375); Red Blood Count 3.87 M/mm3 (4.6-6.20); Red Cell Distribution Width 14.6 % (11.5-14.5); White Blood Count 7.4 K/mm3 (4.5-10.0)
[2024-04-09 10:36] LABS: Blood Urea Nitrogen 18 mg/dL (8-26); Carbon Dioxide 24 mmol/L (22-30); Chloride 103 mmol/L (98-109); Estimated Glomerular Filt Rate 22; Glucose 123 mg/dL (70-105); Ionized Calcium (POC) 1.24 mmol/L (1.11-1.31); Potassium 4.3 mmol/L (3.5-4.9); Sodium 139 mmol/L (138-146)
== END 2024-04-09 10:14 | disposition home or self-care (01) ==
LOC: ANHLAB 10:16
PROVIDERS: PCP Family Medicine; Visit Provider Internal Medicine Hematology & Oncology
DX: D47.3 Essential (hemorrhagic) thrombocythemia (principal)
CPT/HCPCS: 36415; 80047; 85025

== ENCOUNTER 2024-07-16 09:04 | Outpatient (CLI) | payer MEDICARE, SELFPAY ==
[2024-07-16 09:19] LABS: Basophils Absolute Auto 0.1 K/mm3 (0.0-0.1); Basophils Percent Auto 1.2 % (0.2-1.2); Eosinophils Absolute Auto 0.5 K/mm3 (0-0.3); Eosinophils Percent Auto 7.7 % (0-4.4); Hematocrit 37.6 % (42.0-52.0); Hemoglobin 12.7 g/dL (14.0-18.0); Immature Granulocyte Absolute 0.02 K/mm3 (0.00-0.031); Immature Granulocyte Percent A 0.3 % (0-0.5); Lymphocytes Percent Auto 24.2 % (18.3-44.2); Mean Corpuscular HGB Conc 33.8 g/dl (32-36); Mean Corpuscular Hemoglobin 35.7 pg (26-34); Mean Corpuscular Volume 105.6 fl (80-100); Mean Platelet Volume 9.7 fl (7.4-10.4); Monocytes Absolute Auto 0.5 K/mm3 (0.1-0.6); Monocytes Percent Auto 7.4 % (2.6-8.5); Neutrophils Absolute Auto 3.9 K/mm3 (1.3-6.7); Neutrophils Percent Auto 59.2 % (45.5-73.1); Platelet Count Result 320 k/mm3 (150-375); Red Blood Count 3.56 M/mm3 (4.6-6.20); Red Cell Distribution Width 14.5 % (11.5-14.5); White Blood Count 6.6 K/mm3 (4.5-10.0)
[2024-07-16 09:34] LABS: Blood Urea Nitrogen 21 mg/dL (8-26); Carbon Dioxide 27 mmol/L (22-30); Chloride 103 mmol/L (98-109); Estimated Glomerular Filt Rate 18; Glucose 144 mg/dL (70-105); Ionized Calcium (POC) 1.22 mmol/L (1.11-1.31); Sodium 139 mmol/L (138-146)
[2024-07-16 13:30] LABS: Anion Gap 9 mmol/L (4-12); Blood Urea Nitrogen 21 mg/dL (9-20); Calcium 9.5 mg/dL (8.4-10.2); Carbon Dioxide 25 mmol/L (22-30); Chloride 104 mmol/L (98-107); Estimated Glomerular Filt Rate 54; Glucose 126 mg/dL (65-110); Potassium 4.2 mmol/L (3.4-5.0); Sodium 138 mmol/L (137-145)
== END 2024-07-16 09:05 | disposition home or self-care (01) ==
LOC: ANHLAB 09:06
PROVIDERS: PCP Family Medicine; Visit Provider Internal Medicine Hematology & Oncology
DX: D47.3 Essential (hemorrhagic) thrombocythemia (principal)
CPT/HCPCS: 36415; 80047; 80048; 85025

== ENCOUNTER 2024-11-26 08:19 | Outpatient (CLI) | payer MEDICARE, SELFPAY ==
--- OUTSIDE RECORDS SUMMARY | 2024-11-26 08:23 | XMS_ITS | Clinical Summary ---
Author Organization [facility] Address [address] [place] [address] Care Team Providers Care Master Fire Control Technician Name Role Phone Nehemias Long MD Primary Care Provider [phone] Allergies Active Allergy Reactions Criticality Noted Date Comments Pchshoa-Mqq-Isu Reductase Inhibitors Other (See Comments) 01/31/2022 Extreme leg soreness Medications metoprolol tartrate (LOPRESSOR) 50 mg tablet Take 50 mg by mouth every 12 hours. 2 Active lisinopriL (PRINIVIL) 20 mg tablet Take 20 mg by mouth daily. 2 Active tamsulosin (FLOMAX) 0.4 mg capsule Take 0.4 mg by mouth daily. 2 Active amLODIPine (NORVASC) 5 mg tablet Take 5 mg by mouth daily. 2 Active metFORMIN (GLUCOPHAGE) 500 mg tablet Take 500 mg by mouth daily. 2 Active finasteride (PROSCAR) 5 mg tablet Take 5 mg by mouth daily. 2 Active sildenafiL (VIAGRA) 100 mg tablet 2 Active allopurinoL (ZYLOPRIM) 300 mg tablet TAKE 1 TABLET(300 MG) BY MOUTH DAILY 90 Tablet 1 2 Active traMADoL (ULTRAM) 50 mg tablet Take 50 mg by mouth every 6 hours as needed. 2 Active hydroCHLOROthiazide (HYDRODIURIL) 12.5 mg tablet Take 12.5 mg by mouth daily. 2 Active hydroxyurea (HYDREA) 500 mg capsuleIndications: Essential thrombocytosis (CMS/HCC) Take 1 Capsule (500 mg) by mouth 2 times daily. 60 Capsule 6 3 Active sertraline (ZOLOFT) 25 mg tablet Take 50 mg by mouth daily. Active ALPRAZolam (XANAX) 0.25 mg tablet Take 0.25 mg by mouth 3 times daily as needed for Anxiety. Active Active Problems Problem Noted Date Diagnosed Date Essential thrombocytosis 01/31/2022 Encounters Date Type Department Care Team Description 11/09/2024 External Device Data STL ABSTRACTION Provider, Abstract from Last 3 Months Family History Medical History Relation Name Comments Cancer Mother Relation Name Status Comments Brother Alive Daughter 1 Alive Daughter 2 Alive Daughter 3 Alive Father Mother Sister 1 Alive Sister 2 Alive Social History Tobacco Use Types Packs/Day Years Used Date Smoking Tobacco: Former Smokeless Tobacco: Never Tobacco Cessation:Counseling Given: Not Answered Alcohol Use Standard Drinks/Week Comments Yes 0 (1 standard drink = 0.6 oz pur e alcohol) Sex and Gender Information Value Date Recorded Sex Assigned at Not on file Legal Sex Male 10:16 AM RECYCLING ATTENDANT Gender Identity Not on file Sexual Orientation Not on file Last Filed Vital Signs Vital Sign Reading Time Taken Comments Blood Pressure 139/77 07/16/2024 9:39 AM CDT Pulse 54 07/16/2024 9:39 AM CDT Temperature 36.6 C (97.8 F) 07/16/2024 9:39 AM CDT Respiratory Rate 16 07/16/2024 9:39 AM CDT Oxygen Saturation 95% 07/16/2024 9:39 AM CDT Inhaled Oxygen Concentration - - Weight 87.5 kg (193 lb) 07/16/2024 9:39 AM CDT Height 170.2 cm (5' 7 ) 05/21/2022 2:15 PM CDT Body Mass Index 30.23 05/21/2022 2:15 PM CDT Plan of Treatment Upcoming Encounters Date Type Department Care Team (Late st Contact Info) Description 11/26/2024 9:15 AM RECYCLING ATTENDANT Office Visit [facility] Oncology and Hematology - [place] [address] [address] [facility] [address] [place] [address] Harish Ellington MD [address] [place] [address] Health Maintenance Due Date Last Done Comments DTAP/TDAP/TD VACCINES (1 - Tdap) 1971 Traditional Medicare (ACO) Annual Wellness Visit 05/05 COLORECTAL SCREENING 1997 Colorectal Cancer Screening 1997 FIT-DNA Q 3 years 1997 FIT/FOBT Q 1 year 1997 Flex Sig/CT Colonography Q 5 years 1997 PNEUMOCOCCAL VACCINE 65+ YEARS (1 of 1 - PCV) 05/05/20 02 ZOSTER VACCINE (1 of 2) 2002 Abdominal Aortic Aneurysm (AAA) Screening 2017 INFLUENZA VACCINE (#1) 2024 RSV VACCINE (60+ or ) (1 - 1-dose 75+ series) 2027 Insurance MEDICARE PART A AND B [facility] [id number] Care Teams Master Fire Control Technician Relationship Specialty Start Date End Date Nehemias Long MD PCP - General Family Practice 01/31/22
--- OUTSIDE RECORDS SUMMARY | 2024-11-26 08:23 | XMS_ITS | Continuity of Care Document ---
Author Organization [facility] Address [address] [place] [address] Phone Care Team Providers Care Sanitary Plumber Name Role Phone Rachel Rogers Unavailable Unavailable Advance Directives Directive Yes / No Effective Date File Name No Information Encounters Encounter Description Practice Location Reason(s) For Visit Diagnoses Date Provider Providers Copied on Encounter [facility], [id number] [place] [address] [address], [place], [place], [id number], [place] tel:[phone] [facility] No Information February-0 4-200 4 Sue Ramos. [address] , [address], [place], [address], [place]. tel:[phone] Family History Family Member Type Diagnosis Age At Onset No Information Payers Payer name Insurance type Covered green party ID Authoriza tion(s) No Information Social History Type Description Quantity Date Captured Comments Sex Male Smoking Status No Information Chief Complaint And Reason For Visit No Information Reason For Referral Reason For Referral No Information History Of Present Illness Encounter Date Complaint History Of Prese nt Illness No Information Functional Status Date Functional Assessmen t No Information Instructions Date Instruction Additional Infor mation No Information Assessments Type Assessment Date No Information Patient Care Teams Name Effective Dates (start - stop) Status Members No Information
[2024-11-26 08:35] LABS: Basophils Absolute Auto 0.1 K/mm3 (0.0-0.1); Basophils Percent Auto 0.8 % (0.2-1.2); Eosinophils Absolute Auto 0.2 K/mm3 (0-0.3); Hematocrit 39.3 % (42.0-52.0); Immature Granulocyte Absolute 0.05 K/mm3 (0.00-0.031); Immature Granulocyte Percent A 0.7 % (0-0.5); Lymphocytes Absolute Auto 1.45 K/mm3 (0.9-3.2); Lymphocytes Percent Auto 19.8 % (18.3-44.2); Mean Corpuscular HGB Conc 33.1 g/dl (32-36); Mean Corpuscular Hemoglobin 34.9 pg (26-34); Mean Corpuscular Volume 105.4 fl (80-100); Mean Platelet Volume 9.8 fl (7.4-10.4); Monocytes Absolute Auto 0.6 K/mm3 (0.1-0.6); Monocytes Percent Auto 8.6 % (2.6-8.5); Neutrophils Absolute Auto 4.9 K/mm3 (1.3-6.7); Neutrophils Percent Auto 67.1 % (45.5-73.1); Platelet Count Result 373 k/mm3 (150-375); Red Blood Count 3.73 M/mm3 (4.6-6.20); Red Cell Distribution Width 14.6 % (11.5-14.5); White Blood Count 7.3 K/mm3 (4.5-10.0)
[2024-11-26 08:39] LABS: Blood Urea Nitrogen 24 mg/dL (8-26); Carbon Dioxide 25 mmol/L (22-30); Chloride 104 mmol/L (98-109); Estimated Glomerular Filt Rate 46; Glucose 133 mg/dL (70-105); Ionized Calcium (POC) 1.24 mmol/L (1.11-1.31); Potassium 4.5 mmol/L (3.5-4.9); Sodium 140 mmol/L (138-146)
== END 2024-11-26 08:20 | disposition home or self-care (01) ==
LOC: ANHLAB 08:20
PROVIDERS: Visit Provider Internal Medicine Hematology & Oncology
DX: D47.3 Essential (hemorrhagic) thrombocythemia (principal)
CPT/HCPCS: 36415; 80047; 85025

== ENCOUNTER 2025-05-27 09:01 | Outpatient (CLI) | payer MEDICARE, SELFPAY ==
--- OUTSIDE RECORDS SUMMARY | 2025-05-27 09:06 | XMS_ITS | Clinical Summary ---
Author Organization [facility] Address [address] [place] [address] Care Team Providers Care Planer Mill Grader Name Role Phone Nehemias Long MD Primary Care Provider [phone] Allergies Active Allergy Reactions Criticality Noted Date Comments Ispaldg-Onj-Ocy Reductase Inhibitors Other (See Comments) 01/31/2022 Extreme [...] 12.5 mg by mouth daily. 2 Active sertraline (ZOLOFT) 25 mg tablet Take 50 mg by mouth daily. Active ALPRAZolam (XANAX) 0.25 mg tablet Take 0.25 mg by mouth 3 times daily as needed for Anxiety. Active hydroxyurea (HYDREA) 500 mg capsuleIndications: Essential thrombocytosis (CMS/HCC) Take 1 Capsule (500 mg) by mouth 2 times daily. 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 Gender Identity Not on file Sexual Orientation Not on file Last Filed Vital Signs Vital Sign Reading Time Taken Comments Blood Pressure 128/74 11/26/2024 8:39 AM CHURN OPERATOR Pulse 60 11/26/2024 8:39 AM CHURN OPERATOR Temperature 36.2 C (97.2 F) 11/26/2024 8:39 AM CHURN OPERATOR Respiratory Rate 16 11/26/2024 8:39 AM CHURN OPERATOR Oxygen Saturation 95% 11/26/2024 8:39 AM CHURN OPERATOR Inhaled Oxygen Concentration - - Weight 87.1 kg (192 lb) 11/26/2024 8:39 AM CHURN OPERATOR Height 170.2 cm (5' 7) 05/21/2022 2:15 PM CDT Body Mass Index 30.07 05/21/2022 2:15 PM CDT Plan of Treatment Upcoming Encounters Date Type Department Care Team (Late st Contact Info) Description 05/27/2025 9:45 AM CDT Office Visit [facility] Oncology and Hematology [facility] [address] [place] [phone] Harish Ellington MD [address] [place] [id number] Health Maintenance Due Date Last Done Comments DTAP/TDAP/TD VACCINES (1 - Tdap) 1971 COLORECTAL SCREENING 1997 Colorectal Cancer Screening 1997 FIT-DNA Q 3 years 1997 FIT/FOBT Q 1 year 1997 Flex Sig/CT Colonography Q 5 years 1997 PNEUMOCOCCAL VACCINE 50+ YEARS (1 of 1 - PCV) 05/05/20 02 ZOSTER VACCINE (1 of 2) 2002 Abdominal Aortic Aneurysm (AAA) Screening 2017 INFLUENZA VACCINE (#1) 2025 RSV VACCINE (60+ or ) (1 - 1-dose 75+ series) 2027 Insurance MEDICARE PART A AND B IRA [facility] [id number] Care Teams Planer Mill Grader Relationship Specialty Start Date End Date Nehemias Long MD PCP - General Family Practice 01/31/22
--- OUTSIDE RECORDS SUMMARY | 2025-05-27 09:06 | XMS_ITS | Continuity of Care Document ---
Author Organization [facility] Address [address] [place] [address] Phone Care Team Providers Care Unit Operator Name Role Phone Rachel Rogers Unavailable Unavailable Advance Directives Directive Yes / No Effective Date File Name No Information Encounters Encounter Description Practice Location Reason(s) For Visit Diagnoses Date Provider Providers Copied on Encounter [facility], [id number] [place] [address] [address], [place], [place], [id number], [place] tel:[phone] [facility] No Information February-0 4-200 4 Sue Ramos. [address] , [address], [place], [address], [place]. tel:[phone] Family History Family Member Type Diagnosis Age At Onset No Information Payers Payer name Insurance type Covered alliance party ID Authoriza tion(s) No Information Social [...]
[2025-05-27 09:13] LABS: Hematocrit 38.0 % (42.0-52.0); Hemoglobin 12.7 g/dL (14.0-18.0); Immature Granulocyte Percent A 0.7 % (0-0.5); Lymphocytes Absolute Auto 1.45 K/mm3 (0.9-3.2); Mean Corpuscular HGB Conc 33.4 g/dl (32-36); Mean Corpuscular Hemoglobin 34.0 pg (26-34); Mean Corpuscular Volume 101.6 fl (80-100); Nucleated Red Blood Cells Absolute Auto 0.000 K/mm3 (0.0-0.012); Nucleated Red Blood Cells Perc 0.0 % (0.0-0.2); Platelet Count Result 394 k/mm3 (150-375); Red Blood Count 3.74 M/mm3 (4.6-6.20); White Blood Count 7.0 K/mm3 (4.5-10.0)
[2025-05-27 09:17] LABS: Blood Urea Nitrogen 24 mg/dL (8-26); Carbon Dioxide 23 mmol/L (22-30); Chloride 104 mmol/L (98-109); Estimated Glomerular Filt Rate 46; Glucose 133 mg/dL (70-105); Ionized Calcium (POC) 1.22 mmol/L (1.11-1.31); Potassium 4.4 mmol/L (3.5-4.9); Sodium 138 mmol/L (138-146)
== END 2025-05-27 09:02 | disposition home or self-care (01) ==
LOC: ANHLAB 09:02
PROVIDERS: PCP Family Medicine; Visit Provider Internal Medicine Hematology & Oncology
DX: D47.3 Essential (hemorrhagic) thrombocythemia (principal)
CPT/HCPCS: 36415; 80047; 85025